=== PATIENT | male | born 1985 | race Caucasian/White ===

== ENCOUNTER 2019-02-19 10:40 | Emergency (ER) | payer OTHER ==
[~2019-02-19] VITALS: Ht 170.2 cm; Wt 60.8 kg
[2019-02-19 11:02] VITALS: Ht 170.2 cm; Wt 60.8 kg
[2019-02-19 12:01] VITALS: BP 171/110
== END 2019-02-19 11:50 | disposition home or self-care (01) ==
LOC: ED 10:40
DX: S80.862A Insect bite (nonvenomous), left lower leg, initial encounter (principal); S80.861A Insect bite (nonvenomous), right lower leg, initial encounter; S50.361A Insect bite (nonvenomous) of right elbow, initial encounter; S60.561A Insect bite (nonvenomous) of right hand, initial encounter; W57.XXXA Bitten or stung by nonvenomous insect and other nonvenomous arthropods, initial encounter; Y93.89 Activity, other specified; Y92.89 Other specified places as the place of occurrence of the external cause; Y99.8 Other external cause status

== ENCOUNTER 2019-03-09 08:25 | Emergency (ER) | payer OTHER ==
[~2019-03-09] VITALS: Ht 170.2 cm; Wt 61.3 kg
[2019-03-09 08:35] VITALS: Ht 170.2 cm; Wt 61.3 kg
[2019-03-09 09:00] VITALS: BP 153/95
== END 2019-03-09 09:00 | disposition home or self-care (01) ==
LOC: ED 08:25
DX: S80.862A Insect bite (nonvenomous), left lower leg, initial encounter (principal); L08.9 Local infection of the skin and subcutaneous tissue, unspecified; I45.6 Pre-excitation syndrome; W57.XXXA Bitten or stung by nonvenomous insect and other nonvenomous arthropods, initial encounter; Y93.89 Activity, other specified; Y92.89 Other specified places as the place of occurrence of the external cause; Y99.8 Other external cause status

== ENCOUNTER 2019-03-13 17:18 | Emergency (ER) | payer OTHER ==
[~2019-03-13] VITALS: Ht 170.2 cm; Wt 61.0 kg
[2019-03-13 18:14] VITALS: Ht 170.2 cm; Wt 61.0 kg
[2019-03-13 19:58] VITALS: BP 168/80
== END 2019-03-13 19:58 | disposition home or self-care (01) ==
LOC: ED 17:18
DX: S80.822A Blister (nonthermal), left lower leg, initial encounter (principal); X58.XXXA Exposure to other specified factors, initial encounter; Y93.89 Activity, other specified; Y92.89 Other specified places as the place of occurrence of the external cause; Y99.8 Other external cause status
CPT/HCPCS: 90715